=== PATIENT | male | born 1990 ===

== ENCOUNTER 2021-11-21 14:40 | Emergency (ER) | payer SELFPAY ==
[2021-11-21 16:27] VITALS: BP 154/89
--- NOTE | 2021-11-21 17:19 | Emergency Department Report ---
ED Lower Extremity HPI - General Chief Complaint: Extremity Injury, Lower Stated Complaint: RT LEG INJURY Time Seen by Provider: 11/21/21 16:31 Source: patient Mode of arrival: Ambulatory Limitations: No Limitations - History of Present Illness Initial Comments: Patient is a 31-year-old male presents emergency with complaints of a right leg injury that occurred 7 days ago. Patient states that he was working and accidentally hit his right carlos with a pair of pliers. he states that there was no bleeding or cut. He states he did not began to have pain until 4 days ago. He states he then began having swelling and redness around the area where he hit his leg. He denies any fever or drainage. He denies any numbness or weakness. Patient denies any past medical history. He denies any history of diabetes. No allergies to medications. - Related Data Previous Rx's Medication Instructions Recorded Last Taken Type Naproxen 375 mg PO BID PRN #20 11/21/21 Unknown Rx Sulfamethoxazole/Trimethoprim 1 each PO BID #14 tab 11/21/21 Unknown Rx [Bactrim DS TAB] ED Review of Systems ROS: Stated complaint: RT LEG INJURY Other details as noted in HPI Comment: All other systems reviewed and negative ED Past Medical Hx - Medications Home Medications: Home Medications Medication Instructions Recorded Confirmed Last Taken Type Naproxen 375 mg PO BID PRN #20 11/21/21 Unknown Rx Sulfamethoxazole/Trimethoprim 1 each PO BID #14 tab 11/21/21 Unknown Rx [Bactrim DS TAB] ED Physical Exam - General Limitations: No Limitations General appearance: alert, in no apparent distress - Head Head exam: Present: atraumatic, normocephalic - Eye Eye exam: Present: normal appearance - ENT ENT exam: Present: mucous membranes moist - Extremities Exam Extremities exam: Present: other (ttp to the mid right anterior carlos, there is a 1 cm area of induration with a 3 cm area of surrounding erythema, no fluctuance, no drainage, no necrosis, FROM, neurovascularly intact) - Neurological Exam Neurological exam: Present: alert, oriented X3 - Psychiatric Psychiatric exam: Present: normal affect, normal mood - Skin Skin exam: Present: warm, dry ED Course Vital Signs 11/21/21 11/21/21 16:25 16:27 Temperature 98.7 F Pulse Rate 68 Respiratory 17 Rate Blood Pressure 154/89 O2 Sat by Pulse 99 Oximetry ED Lower Extremity MDM - Radiology Data Radiology results: report reviewed Ordering Physician: BASIL MELGAR Date of Service: 11/21/21 Procedure(s): XR tibia fibula 2V RT Accession Number(s): [id number] cc: BASIL MELGAR Fluoro Time In Minutes: RIGHT TIBIA/FIBULA 4 VIEWS INDICATION / CLINICAL INFORMATION: Right leg erythema/edema. Hit in right leg with pliers. COMPARISON: None available. FINDINGS: BONES and JOINT(S): No acute fracture or subluxation. No significant arthritis. SOFT TISSUES: Mild edema is seen medially along the distal third of the leg. No other significant abnormality. ADDITIONAL FINDINGS: None. IMPRESSION: Mild right leg edema without other acute findings. Signer Name: Candido Golden MD Signed: 11/21/2021 5:17 PM Workstation Name: [id number] Transcribed By: ESTEBAN Dictated By: Candido Golden MD Electronically Authenticated By: Candido Golden MD Signed Date/Time: 11/21/211716 DD/ 15 TD/TT: - Medical Decision Making Patient is a 31-year-old male presents emergency with complaints of a right leg injury that occurred 7 days ago. Patient states that he was working and accide ntally hit his right carlos with a pair of pliers. he states that there was no bleeding or cut. He states he did not began to have pain until 4 days ago. He states he then began having swelling and redness around the area where he hit his leg. He denies any fever or drainage. He denies any numbness or weakness. Patient denies any past medical history. He denies any history of diabetes. No allergies to medications. Vitals are stable. On exam:ttp to the mid right anterior carlos, there is a 1 cm area of induration with a 3 cm area of surrounding erythema, no fluctuance, no drainage, no necrosis, FROM, neurovascularly intact. Examination appears consistent with leg contusion with surrounding cellulitis. There is no signs of abscess at this time. X-ray right tib-fib Mild right leg edema without other acute findings. Discussed all findings with patient. Advised Please take medication as prescribed. May use warm compresses. Follow-up with your primary care doctor in the next 3 days to have area reexamined. Return to emergency room immediately for any new or worsening symptoms including but not limited to worsening redness, worsening swelling, fever, chills, drainage, vomiting, etc. Critical care attestation.: If time is entered above; I have spent that time in minutes in the direct care of this critically ill patient, excluding procedure time. ED Disposition Clinical Impression: Contusion of leg Qualifiers: Encounter type: initial encounter Laterality: right Qualified Code(s): S80.11XA - Contusion of right lower leg, initial encounter Cellulitis Qualifiers: Site of cellulitis: extremity Site of cellulitis of extremity: lower extremity Laterality: right Qualified Code(s): L03.115 - Cellulitis of right lower limb Disposition: HOME / SELF CARE / HOMELESS Is pt being admited?: No Does the pt Need Aspirin: No Condition: Stable Instructions: Cellulitis, Adult, Contusion, [id number] Additional Instructions: Please take medication as prescribed. May use warm compresses. Follow-up with your primary care doctor in the next 3 days to have area reexamined. Return to emergency room immediately for any new or worsening symptoms including but not limited to worsening redness, worsening swelling, fever, chills, drainage, vomiting, etc. Prescriptions: Sulfamethoxazole/Trimethoprim [Bactrim DS TAB] 1 each PO BID #14 tab Naproxen 375 mg PO BID PRN #20 PRN Reason: pain Referrals: PRIMARY CARE, [Primary Care Provider] - 3-5 Days ARISTEO INGRAM MD [Staff Physician] - 3-5 Days Time of Disposition: 17:24 Print Language: KOSOVAN
== END 2021-11-21 18:24 | disposition home or self-care (01) ==
LOC: ED 14:40
DX: S80.11XA Contusion of right lower leg, initial encounter (principal); L03.115 Cellulitis of right lower limb; W22.8XXA Striking against or struck by other objects, initial encounter; Y93.89 Activity, other specified; Y92.89 Other specified places as the place of occurrence of the external cause; Y99.8 Other external cause status
CPT/HCPCS: 99283